=== PATIENT | female | born 1980 | race Caucasian/White ===

== ENCOUNTER 2016-12-22 10:05 | Outpatient (CLI) | payer OTHER ==
[~2016-12-22] VITALS: Ht 162.6 cm; Wt 68.1 kg
[2016-12-22 10:14] VITALS: BP 124/80
== END 2016-12-22 11:08 | disposition home or self-care (01) ==
LOC: LDOP 10:05
PROVIDERS: ATTEND Obstetrics & Gynecology
DX: O26.893 Other specified pregnancy related conditions, third trimester (principal); T42.1X1A Poisoning by iminostilbenes, accidental (unintentional), initial encounter; R42 Dizziness and giddiness; Y92.89 Other specified places as the place of occurrence of the external cause; Z3A.37 37 weeks gestation of pregnancy
CPT/HCPCS: 59025; 99211; G0463

== ENCOUNTER 2017-01-11 10:33 | Inpatient (IN) | payer OTHER ==
[~2017-01-11] VITALS: Ht 162.6 cm; Wt 70.0 kg
[2017-01-15] MEDS ORDERED: OXYTOCIN 30U/ 0.9% NaCL 500ML 500 ML IV ONE (08:41)
[2017-01-15] MEDS ORDERED: AMPICILLIN 2 GM in SODIUM CHLORIDE 0.9% 100 ML IVPB STA (08:41)
[2017-01-15] MEDS ORDERED: PLEASE ENTER HEIGHT AND WEIGHT MC SCH (08:56)
[2017-01-15] MEDS: LACTATED RINGERS 1,000 ML IV SCH ×2 (09:00→13:55)
[2017-01-15] MEDS ORDERED: TERBUTALINE 1 MG/ML, 1ML IVPush PRN (09:00)
[2017-01-15] MEDS ORDERED: FENTANYL PF 100 MCG/2ML IVPush PRN (09:00)
[2017-01-15] MEDS ORDERED: FENTANYL PF 100 MCG/2ML IV PRN (09:00)
[2017-01-15] MEDS ORDERED: SODIUM CHLORIDE FLUSH 10ML SYR IVF PRN (09:00)
[2017-01-15] MEDS ORDERED: NEWBORN KIT ONE (09:20)
[2017-01-15] MEDS ORDERED: MISOPROSTOL 200 MCG TABLET ONE (09:20)
[2017-01-15] MEDS ORDERED: OXYTOCIN 30U/ 0.9% NaCL 500ML 500 ML ONE (09:20)
[2017-01-15 09:21] LABS: HEMATOCRIT 40.6 % (34.6-47.8); HEMOGLOBIN 13.8 g/dL (11.7-16.4); WHITE BLOOD COUNT 7.9 x10^3/uL (3.4-10)
[2017-01-15] MEDS ORDERED: LIDOCAINE 1%, 20ML ONE (09:21)
[2017-01-15 10:02] VITALS: BP 136/82
[2017-01-15] MEDS ORDERED: FENTANYL PF 100 MCG/2ML ONE (11:43)
[2017-01-15] MEDS ORDERED: AMPICILLIN 1 GM in SODIUM CHLORIDE 0.9% 50 ML IVPB SCH (12:30)
[2017-01-15] MEDS ORDERED: IBUPROFEN 600 MG TABLET ONE (13:21)
[2017-01-15] MEDS: OXYTOCIN 30U/ 0.9% NaCL 500ML 500 ML IV SCH (14:06)
[2017-01-15] MEDS ORDERED: OXYcodone/APAP 5/325MG TABLET PO PRN ×2 (14:30)
[2017-01-15] MEDS ORDERED: MISOPROSTOL 200 MCG TABLET PR PRN (14:30)
[2017-01-15 15:30] VITALS: BP 115/72
[2017-01-15 19:20] VITALS: BP 110/63
[2017-01-15] MEDS: IBUPROFEN 600 MG TABLET PO PRN (20:02)
[2017-01-15] MEDS: DOCUSATE 100 MG CAPSULE PO PRN (20:02)
[2017-01-15 21:40] LABS: HEMATOCRIT 36.8 % (34.6-47.8); HEMOGLOBIN 12.4 g/dL (11.7-16.4); WHITE BLOOD COUNT 14.4 x10^3/uL (3.4-10)
[2017-01-16] MEDS: OXYTOCIN 30U/ 0.9% NaCL 500ML 500 ML IV SCH ×2 (00:06→20:06)
[2017-01-16 00:15] VITALS: BP 106/71
[2017-01-16 04:50] VITALS: BP 96/56
[2017-01-16] MEDS: IBUPROFEN 600 MG TABLET PO PRN ×3 (05:01→18:16)
[2017-01-16 08:30] VITALS: BP 122/89
[2017-01-16] MEDS: PRENATAL VIT/IRON/FA 1 EACH TABLET PO SCH (08:31)
[2017-01-16] MEDS: DOCUSATE 100 MG CAPSULE PO PRN (08:31)
[2017-01-16 12:00] VITALS: BP 112/80
[2017-01-16 20:55] VITALS: BP 109/67
[2017-01-17] MEDS: IBUPROFEN 600 MG TABLET PO PRN (05:04)
[2017-01-17] MEDS: OXYTOCIN 30U/ 0.9% NaCL 500ML 500 ML IV SCH (06:06)
[2017-01-17 08:00] VITALS: BP 114/77
[2017-01-17] MEDS: PRENATAL VIT/IRON/FA 1 EACH TABLET PO SCH (08:57)
[2017-01-17] MEDS: DOCUSATE 100 MG CAPSULE PO PRN (08:57)
[2017-01-17] MEDS ORDERED: FLU VACC QS2017-18 (36MOS+) UP/PF 0.5 ML IM-VACC ONE (11:30)
[2017-01-17] MEDS ORDERED: IBUP-1222 PO (14:04)
== END 2017-01-17 14:55 | disposition home or self-care (01) | DRG 775 ==
LOC: LDIP 01-15 08:37 → 2NW 01-15 15:10
PROVIDERS: ADMIT Obstetrics & Gynecology; ATTEND Obstetrics & Gynecology
PROC: 10E0XZZ Delivery of Products of Conception, External Approach (ICD-10-PCS; 2017-01-15)
PROC: 0W8NXZZ Division of Female Perineum, External Approach (ICD-10-PCS; 2017-01-15)
PROC: 3E0234Z Introduction of Serum, Toxoid and Vaccine into Muscle, Percutaneous Approach (ICD-10-PCS; principal; 2017-01-17)
DX: O99.824 Streptococcus B carrier state complicating childbirth (principal); O48.0 Post-term pregnancy; Z23 Encounter for immunization; Z37.0 Single live birth; Z3A.40 40 weeks gestation of pregnancy
CPT/HCPCS: 36415; 85025; 86850; 86900; 90686; J0290; J3010; J7120